=== PATIENT | female | born 1975 | race Caucasian/White ===

== ENCOUNTER 2021-06-03 20:50 | Emergency (ER) | payer MEDICAID ==
[~2021-06-03] VITALS: Ht 170.2 cm; Wt 99.8 kg
[~2021-06-03 20:50] MED LIST: LEVO200T PO
[2021-06-03 21:53] LABS: Basophils # (auto) 0.1 10 ^3/uL (0-0.2); Basophils % (auto) 0.7 % (0.0-2.0); Eosinophils # (auto) 0.2 10 ^3/uL (0-0.8); Hematocrit 36.2 % (36.0-46.0); Lymphocytes # (auto) 2.3 10 ^3/uL (0.4-5.4); Lymphocytes % (auto) 19.8 % (10.0-50.0); Mean Corpuscular Hemoglobin 30.3 pg (28.0-32.0); Mean Corpuscular Hgb Conc. 33.1 g/dL (32.0-36.0); Mean Corpuscular Volume 91.5 fL (80.0-100.0); Monocytes # (auto) 0.9 10 ^3/uL (0-1.3); Monocytes % (auto) 7.8 % (0.0-12.0); Neutrophils % (auto) 69.7 % (37.0-80.0); Nucleated Red Blood Cells % 0.1 %; Red Blood Cells 3.96 10^6/uL (4.0-5.20); White Blood Cell 11.5 10^3/uL (4.4-10.8)
[2021-06-03 22:22] LABS: Albumin 3.6 g/dL (3.4-5.0); BUN/Creatinine Ratio 6.4; Calcium 9.6 mg/dL (8.5-10.1); Magnesium 3.1 mg/dL (1.6-2.6); Potassium 3.2 mmol/L (3.5-5.1)
[2021-06-03 22:24] LABS: Bilirubin, Total 0.5 mg/dL (0.2-1.0); Total Protein 8.7 g/dL (6.4-8.2)
[2021-06-04 07:02] VITALS: BP 118/82
== END 2021-06-04 07:08 | disposition home or self-care (01) ==
LOC: ER 20:51
DX: G51.0 Bell's palsy (principal); Z20.822 Contact with and (suspected) exposure to COVID-19; Z87.891 Personal history of nicotine dependence; Z90.89 Acquired absence of other organs
CPT/HCPCS: 36415; 71045; 80053; 83735; 85025; 87426; 93005